=== PATIENT | female | born 1975 | race Caucasian/White ===

== ENCOUNTER 2017-11-02 14:24 | Emergency (ER) | END 2017-11-02 16:52 | disposition home or self-care (01) ==

== ENCOUNTER 2019-04-06 05:33 | Day surgery (SDC) | payer OTHER ==
[2019-04-06] VITALS (11 sets, daily range): BP systolic 94–110; BP diastolic 52–61; PULSE 72–90; RESP 12–18; Ht 165.1 cm; Wt 78.4 kg
[~2019-04-06] VITALS: Ht 165.1 cm; Wt 78.4 kg
[~2019-04-06 05:33] MED LIST: ALPR0.25 PO; HYDR-4011 PO; HYDR25CA PO; IBUP-1542 PO; METH500T PO; NAPR-985 PO; NAPR375T PO
--- NOTE | 2019-04-06 07:12 | PREAC ---
Date/Time of Note Date/Time of Note DATE: 04/06/19 TIME: 07:10 Anesthesia Eval and Record Evaluation Time Pre-Procedure Interview DATE: 04/06/19 TIME: 07:10 Age 43 Sex female NPO: 8 hrs Preoperative diagnosis Uterine leiomyoma Planned procedure Hysteroscopy, D & C Past Medical History Past Medical History: Includes Psych: Anxiety Surgery & Anesthesia Issues No known issue Meds Anticoagulation: No Beta Donn within 24 hr: No Reason Beta Donn not given: Pt. not on B-Donn Discontinued Scripts Hydrocodone/Acetaminophen (Jasper 5-325 Tablet) 1 Each Tablet, 1 TAB PO Q6H PRN for PAIN, #10 TAB Prov:AYESHA MAKI PA-C 11/02/17 Naproxen* (Naprosyn*) 500 Mg Tablet, 500 MG PO BID PRN for PAIN AND/OR INFLAMMATION, #30 TAB Prov:AYESHA MAKI PA-C 11/02/17 Ibuprofen* (Motrin*) 600 Mg Tab, 600 MG PO Q6, #20 TAB Prov:BRADY GARCIA PA-C 07/26/15 Methocarbamol* (Robaxin*) 500 Mg Tab, 500 MG PO Q6, #14 TAB Prov:NIRAJ GALLEGOS DO 04/23/15 Naproxen* (Naprosyn*) 375 Mg Tablet, 375 MG PO BID, #20 TAB Prov:GREENPAONIRAJ DO 04/23/15 Hydroxyzine Pamoate* (Vistaril*) 25 Mg Capsule, 25 MG PO Q8 PRN for ANXIETY, #14 CAP Prov:PAO GALLEGOSSHUA DO 04/23/15 Alprazolam* (Xanax*) 0.25 Mg Tablet, 0.25 MG PO Q8H PRN for ANXIETY, #10 TAB Prov:NIRAJ GALLEGOS DO 04/23/15 Current Medications Lactated Ringer's 1,000 ml @ 125 mls/hr Q8H IV ; Start 04/06/19 at 08:00 Meds reviewed: Yes Allergies Coded Allergies: No Known Allergy (Unverified , 04/06/19) Allergies Reviewed: Yes Labs/Studies Labs Reviewed: Reviewed by anesthesiologist test: Negative Pre-procedure Exam Last vitals Vital Signs Date Temp Pulse Resp B/P (MAP) Pulse Ox O2 O2 Flow FiO2 Time Delivery Rate 04/06/19 98.1 78 18 97/52 (67) 99 Room Air 07:07 Airway: Adequate mouth opening Mallampati: Mallampati II Teeth: Normal Lung: Normal Heart: Normal ASA Physical Status ASA physical status: 2 Emergency: None Planned Anesthetic General/MAC: ETT, LMA Planned Pain Management Parenteral pain med Pre-operative Attestations Prior to commencing anesthesia and surgery, the patient was re-evaluated, there was verification of: *The patient's identity *The results of appropriate recent lab work and preoperative vital signs *The above evaluation not changing prior to induction *Anesthetic plan, risk benefits, alternative and complications discussed with patient/family; questions answered; patient/family understands, accepts and wishes to proceed. DEVAUGHN GARCIA MD Apr 06, 2019 07:12
[2019-04-06] MEDS ORDERED: CEFAZOLIN 1 GM INJ ONE (07:24)
[2019-04-06] MEDS ORDERED: PROPOFOL 20 ML ONE (07:24)
[2019-04-06] MEDS ORDERED: LIDOCAINE 2% (SDV) 5 ML INJ ONE (07:24)
[2019-04-06] MEDS ORDERED: MEPERIDINE 100 MG INJ ONE (07:25)
[2019-04-06] MEDS ORDERED: METOCLOPRAMIDE 10 MG INJ ONE (07:25)
[2019-04-06] MEDS ORDERED: ONDANSETRON 4 MG INJ ONE (07:25)
--- NOTE | 2019-04-06 07:25 | HPN ---
Date/Time of Note Date/Time of Note DATE: 04/06/19 TIME: 07:24 Interval H&P Admission Note Pt. seen H&P reviewed: No system changes NHI REYES MD Apr 06, 2019 07:25
[2019-04-06] MEDS ORDERED: LACTATED RINGER'S 1,000 ML IV SCH (08:00)
--- NOTE | 2019-04-06 09:18 | SIPON ---
Date/Time of Note Date/Time of Note DATE: 04/06/19 TIME: 09:15 Operative Report Preoperative Diagnosis sssubmucous uterine fibroid/ endometrial polyp Postoperative Diagnosis submucous uterine fibroid Operation/Procedure Performed operative hysteroscopic myomectomy Surgeon see signature line senior care assistant Metronic REP Maykel Luis Anesthesia: general Estimated blood loss: minimal Transfusion Required none Specimen myoma Grafts/Implants none Complications none NHI REYES MD Apr 06, 2019 09:18
--- NOTE | 2019-04-06 09:19 | PD.PPDC ---
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 Discharge Instruction Diagnosis [id number] Final Diagnosis: Nquos4n submucous uterine fibroid Condition [id number] Patient Condition: Idcuj1s Stable Diet [id number] Diet: Teukc5u Resume Regular Diet Activity/Restrictions [id number] Activity: Njhhq9y May Shower [id number] Restrictions: Upgiz5l No Sexual Activity Nothing in the Vagina No Stepping Stone No Tampons, douche Follow-up Follow-up with Physician: 2, Week/Weeks Return to clinic for Cykcq1Qr [employer] Instructions: Hrafh5q Fever greater than 101 Chills Worsening abdominal pain Excessive Vaginal Bleeding More than 2 pads per hour Unable to tolerate diet NHI REYES MD Apr 06, 2019 09:19
[2019-04-06] MEDS ORDERED: ONDANSETRON 4 MG INJ IV PRN (09:30)
[2019-04-06] MEDS ORDERED: METOCLOPRAMIDE 10 MG INJ IV PRN (09:30)
[2019-04-06] MEDS ORDERED: HYDROmorphONE 1 MG/5 ML IV SYRINGE IV PRN ×3 (09:30)
[2019-04-06] MEDS ORDERED: OXYCODONE/ACETAMINOPHEN (5/325) TAB PO PRN ×2 (09:30)
[2019-04-06] MEDS ORDERED: MEPERIDINE 25 MG INJ IV PRN (09:30)
[2019-04-06] MEDS ORDERED: MIDAZOLAM 1 MG/ML 2 ML INJ IV PRN (09:30)
[2019-04-06] MEDS ORDERED: FENTAnyl 50 MCG/ML VIAL IV PRN ×3 (09:30)
[2019-04-06] MEDS ORDERED: DIPHENHYDRAMINE 50 MG INJ IV PRN (09:30)
--- NOTE | 2019-04-06 10:06 | PAC ---
Date/Time of Note Date/Time of Note DATE: 04/06/19 TIME: 10:06 Post-Anesthesia Notes Post-Anesthesia Note Last documented vital signs Vital Signs Date Temp Pulse Resp B/P (MAP) Pulse Ox O2 O2 Flow FiO2 Time Delivery Rate 04/06/19 76 12 103/52 100 Room Air 09:51 (69) 04/06/19 100.0 09:26 Activity: WNL Respiratory function: WNL Cardiovascular function: WNL Mental status: Baseline Pain reasonably controlled: Yes Hydration appropriate: Yes Nausea/Vomiting absent: Yes Comments BT: 99.2 DEVAUGHN GARCIA MD Apr 06, 2019 10:06
--- NOTE | 2019-04-07 10:58 | OPR ---
DATE OF OPERATION: 04/06/2019 PREOPERATIVE DIAGNOSIS: Submucous fibroid versus endometrial polyp. POSTOPERATIVE DIAGNOSIS: Submucous uterine leiomyomata. OPERATION PERFORMED: Operative hysteroscopic submucosal myomectomy. ANESTHESIA: General. ANESTHESIOLOGIST: Dr. Myah Whitfield. GIN INSPECTOR: GutCheckcarlos Brar. SECOND ASSIST: Lauro Toothpick. SURGEON: Bharti Lambert MD ESTIMATED BLOOD LOSS: Negligible. PROCEDURE: Under proper induction of general anesthesia, the patient was placed in dorsal lithotomy position. Perineal area and vagina wall was prepped and draped in usual aseptic manner. On inspecti on, external genitalia revealed no gross abnormality. Bimanual examination revealed uterus slightly increased in size, firm in consistency. There was no apparent irregularity noted on the surface of t he uterus. There was no palpable adnexal pathology. Weighted speculum was introduced, cervix identi fied which was clear and parous appearing and anterior lip of cervix was grasped with a single tooth tenaculum and the cavity was sounded, which was 8 cm in depth. Os was dilated up to using #7 Hegar d ilator and the hysteroscope, which was prepared in usual fashion connected to normal saline and the h ysteroscope was introduced, gradually through the endocervix to the point visualized on the fundus an d both ostium clearly and there was mass which appeared to be grady-white, surface is smooth and consi stency appeared to be hard. Decided to do the soft tissue shaver try first and then if it does not w ork and was going to switch to the dense tissue removal. First, after expanding the uterine cavity a nd a soft tissue shaver was introduced through the side channel and after the usual fashion and this shaver was initiated on the surface of the uterine fibroid which appeared to be approximately 3 cm in diameter. Because of the density of the tissue, it was taking time decided to switch to the dense s haver, which was introduced and the entire of a submucosal fibroid was taken in multiple pieces which was successful, took more than 30 minutes because of the density of the fibroid, base was completely shaved and in between the multiple picture was taken and the procedure was completed. Hysteroscope was removed and the cervical site on the tenaculum was checked for bleeding after removal of all the instruments. Estimated blood loss was negligible. Procedure was completely done successfully and th e patient was taken to the recovery room in stable condition. Dictated By: BHARTI COPE/NIKI Conf#: [id number] DID#: [id number]
== END 2019-04-06 10:41 | disposition home or self-care (01) ==
LOC: SDS 05:33
PROVIDERS: ATTEND Obstetrics & Gynecology
DX: D25.0 Submucous leiomyoma of uterus (principal); F41.9 Anxiety disorder, unspecified
CPT/HCPCS: 58561; J0690; J2175; J2405; J2765; Z7610; 88305